=== PATIENT | female | born 1945 | race Caucasian/White ===

== ENCOUNTER 2019-02-22 18:28 | Emergency (ER) | payer OTHER, BC ==
[2019-02-22 18:34] VITALS: BP 151/78; PULSE 89; TEMP 97.9; BMI 32.8
--- NOTE | 2019-02-22 19:10 | PDOC ---
History of Present Illness - General Chief Complaint: Pain, Acute Stated Complaint: FOOT SWELLING Time Seen by Provider: 02/22/19 19:10 - History of Present Illness Initial Comments: This 73-year-old woman with a history of HTN/DM/chronic low back pain was sent to the ER for evaluation of left lower leg swelling. Patient states that overnight she developed nonpainful swelling of the left ankle. No history of trauma to this area. She has a history of lumbar spine pain and left-sided sciatica. Patient has had 3 lumbar spine facet blocks in the last several weeks , reportedly not very effective by the patient. No history of thromboembolic disease in this patient. No recent surgery/no malignancy. Patient is nonsmoker Past History - Past Medical History Allergies/Adverse Reactions: Allergies Allergy/AdvReac Type Severity Reaction Status Date / Time No Known Allergies Allergy Verified 02/22/19 18:29 Home Medications: Ambulatory Orders Unobtainable 02/22/19 COPD: No Diabetes: Yes HTN: Yes - Suicide/Smoking/Psychosocial Hx Smoking History: Never smoked Hx Alcohol Use: No Drug/Substance Use Hx: No Review of Systems - Review of Systems Able to Perform ROS?: Yes Comments:: 12 point review of systems is negative except for what is noted in the history of present illness *Physical Exam - Vital Signs Last Vital Signs Temp Pulse Resp BP Pulse Ox 97.9 F 89 19 151/78 94 L 02/22/19 18:28 02/22/19 18:28 02/22/19 18:28 02/22/19 18:28 02/22/19 18:28 - Physical Exam Comments: GENERAL: Adult female, alert and oriented 3, in no acute distress HEAD: Normal with no signs of trauma. EYES: PERRLA, EOMI, sclera anicteric, conjunctiva clear. ENT: Ears normal, nares patent, oropharynx clear without exudates. Moist mucous membranes. NECK: Normal range of motion, supple without lymphadenopathy, JVD, or masses. LUNGS: Breath sounds equal, clear to auscultation bilaterally. No wheezes, and no crackles. HEART:Regular rate and rhythm, normal S1 and S2 without murmur, rub or gallop. ABDOMEN:.normal bowel sounds No guarding,tenderness or rebound.No masses No distention. EXTREMITIES: Left lower extremity: 2+ nonpitting edema of the left ankle / proximal foot/distal lower leg; nontender/nonerythematous/no fluctuance Calf/popliteal region/posterior thigh are all nontender without palpable cords Extremity exam is otherwise unremarkable NEUROLOGICAL: Cranial nerves II through XII grossly intact. Normal speech. No focal neurological deficits. MUSCULOSKELETAL: Back non-tender to palpation, no CVA tenderness SKIN: Warm, Dry, normal turgor, no rashes or lesions noted. ED Treatment Course - RADIOLOGY Radiology Studies Ordered: Category Date Time Status DUPLEX VASCUL US-1 LEG [US] Stat Ultrasound 02/22/19 19:04 Ordered Medical Decision Making - Medical Decision Making Doppler duplex ultrasound of the left lower extremity performed to evaluate for DVT. Imaging study result : No evidence of DVT as per Dr. Galindo of the radiology staff Results discussed with the patient. The patient was discharged with follow-up with her general medical doctor within the next 24 hours. She should return to the emergency room if she has any worsening of swelling/shortness of breath/ increase of pain or redness in the area of edema *DC/Admit/Observation/Transfer Diagnosis at time of Disposition: Edema of left ankle Chronic low back pain Qualifiers: Back pain laterality: left Sciatica presence: with sciatica Sciatica laterality : sciatica of left side Qualified Code(s): M54.42 - Lumbago with sciatica, left side - Discharge Dispostion Disposition: HOME Condition at time of disposition: Stable - Referrals - Patient Instructions Printed Discharge Instructions: DI for Peripheral Edema, Unilateral Additional Instructions: keep left leg elevated as much as posssible followup with your general doctor within the next 48 hours return to ER if pain/swelling worsens - Post Discharge Activity
== END 2019-02-22 20:59 | disposition home or self-care (01) ==
LOC: FER 18:28
DX: M54.42 Lumbago with sciatica, left side (principal); M25.472 Effusion, left ankle; I10 Essential (primary) hypertension; E11.9 Type 2 diabetes mellitus without complications; G89.29 Other chronic pain; M54.5 Low back pain
CPT/HCPCS: 93971-TC; 99281-25